=== PATIENT | female | born 1995 | race Caucasian/White ===

== ENCOUNTER 2017-04-28 21:09 | Emergency (ER) | payer OTHER ==
[2017-04-28 21:20] VITALS: BP 129/85; PULSE 91; TEMP 98.6; BMI 21.4
--- NOTE | 2017-04-28 22:03 | PDOC ---
History of Present Illness <Jenni Su - Last Filed: 04/29/17 00:54> - General History Source: Patient, Parent(s) Exam Limitations: No Limitations - History of Present Illness Initial Comments: 04/28/17 21:57 This is a 21 yo female with unremarkable PMH who presents with 10/10 throbbing headache on both sides of her forehead and radiating to the top of the head. The onset was and the symptoms have been worsening since that time. She note light sensitivity, but no noise sensitivity. She endorses associated room-spinning dizziness, but cannot specify which direction the room is spinning , and states that she has trouble balancing/walking only in the setting of worsened dizziness. She denies any vision changes, numbness, tingling, weakness , fever, chills, nausea, vomiting, diarrhea, constipation, cough, runny nose, rashes, neck pain, back pain, cough, runny nose, sore throat, or recent illness. Her mother was sick with "el gripe" last week. She denies any chance that she may be . 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 <Josie Pelletier - Last Filed: 04/29/17 01:25> - General Chief Complaint: Headache Stated Complaint: HEAD ACHE Time Seen by Provider: 04/28/17 21:40 Past History <Jenni Su - Last Filed: 04/29/17 00:54> - Past Medical History Other medical history: denies - Psycho/Social/Smoking Cessation Hx Suicidal Ideation: No Smoking History: Never smoked <Josie Pelletier - Last Filed: 04/29/17 01:25> - Past Medical History Allergies/Adverse Reactions: Allergies Allergy/AdvReac Type Severity Reaction Status Date / Time No Known Allergies Allergy Verified 04/28/17 22:25 Home Medications: Ambulatory Orders NK [No Known Home Medication] 04/28/17 Review of Systems - Review of Systems Constitutional: No: Chills, Fever, Unexplained wgt Loss HEENTM: No: Eye Pain, Blurred Vision, Recent change in vision, Ear Pain, Ear Discharge, Nose Congestion, Throat Pain, Throat Swelling Respiratory: No: Cough, Shortness of Breath Cardiac (ROS): No: Chest Pain, Palpitations ABD/GI: No: Constipated, Diarrhea, Nausea, Vomiting : No: Burning, Dysuria Musculoskeletal: No: Back Pain, Neck Pain Integumentary: No: Bruising, Rash Neurological: Yes: Headache, Other (light sensitivity). No: Numbness, Tingling , Weakness, Dizziness Endocrine: No: Unexplained Weight Gain, Unexplained Weight Loss <Josie Pelletier - Last Filed: 04/29/17 01:25> *Physical Exam - Vital Signs Last Vital Signs Temp Pulse Resp BP Pulse Ox 98.6 F 91 H 18 129/85 100 04/28/17 21:17 04/28/17 21:17 04/28/17 21:17 04/28/17 21:17 04/28/17 21:39 <Jenni Su - Last Filed: 04/29/17 00:54> - Vital Signs Last Vital Signs Temp Pulse Resp BP Pulse Ox 98.6 F 91 H 18 129/85 100 04/28/17 21:17 04/28/17 21:17 04/28/17 21:17 04/28/17 21:17 04/28/17 21:17 - Physical Exam General Appearance: Yes: Nourished, Appropriately Dressed, Mild Distress, Other (healthy-appearing young woman) HEENT: positive: EOMI, LORENA, Normal Voice, TMs Normal, Hearing Grossly Normal. negative: Scleral Icterus (R), Scleral Icterus (L), Nasal Congestion Neck: positive: Trachea midline, Supple, Other (no nucchal rigidity, no meningeal signs). negative: Tender, Rigid Respiratory/Chest: positive: Lungs Clear, Normal Breath Sounds. negative: Respiratory Distress, Crackles, Rhonchi, Stridor, Wheezing Cardiovascular: positive: Regular Rhythm, Regular Rate, Other (not tachycardic at the time of examination). negative: Murmur Gastrointestinal/Abdominal: positive: Normal Bowel Sounds, Soft. negative: Tender, Organomegaly, Pulsatile Mass, Guarding Musculoskeletal: positive: Normal Inspection. negative: Decreased Range of Motion, Vertebral Tenderness Extremity: positive: Normal Capillary Refill, Normal Inspection, Normal Range of Motion. negative: Tender, Cyanosis Integumentary: positive: Normal Color, Dry, Warm. negative: Erythema, Rash, Bruising Neurologic: positive: insurance consultant II-XII NML intact, Fully Oriented, Alert, Normal Mood/ Affect, Normal Response, Motor Strength 5/5 <Josie Pelletier - Last Filed: 04/29/17 01:25> ED Treatment Course - LABORATORY CBC & Chemistry Diagram: 04/28/17 23:33 04/28/17 23:33 - ADDITIONAL ORDERS Additional order review: Laboratory Results 04/28/17 04/28/17 04/28/17 23:33 23:33 23:33 INR 1.26 H Sodium 141 Potassium 3.6 Chloride 104 Carbon Dioxide 29 Anion Gap 8 BUN 15 Creatinine 0.7 Creat Clearance w eGFR > 60 Random Glucose 70 L Calcium 8.5 Total Bilirubin 0.3 AST 18 ALT 20 Alkaline Phosphatase 58 Total Protein 7.1 Albumin 3.8 Beta HCG, Quant < 1.0 04/28/17 23:33 RBC 4.49 MCV 81.7 MCHC 32.4 RDW 13.1 MPV 9.7 Neutrophils % 48.8 Lymphocytes % 42.3 H Monocytes % 6.5 Eosinophils % 1.9 Basophils % 0.5 - Medications Given in the ED: ED Medications Discontinued Medications Generic Name Dose Route Start Last Admin Trade Name Brain PRN Reason Stop Dose Admin Acetaminophen 1,000 mg 04/28/17 22:06 04/28/17 22:14 Tylenol - PO 04/28/17 22:07 1,000 mg ONCE ONE Administration Diphenhydramine HCl 50 mg 04/28/17 22:39 04/28/17 23:48 Benadryl - PO 04/28/17 22:40 50 mg ONCE ONE Administration <Jenni Su - Last Filed: 04/29/17 00:54> - LABORATORY CBC & Chemistry Diagram: 04/28/17 23:33 04/28/17 23:33 <Josie Pelletier - Last Filed: 04/29/17 01:25> Medical Decision Making - Medical Decision Making 04/28/17 22:09 This is a 21 yo female who presents with first-onset headache worsening since . Most likely this is a migraine given the throbbing nature, photophobia , and the associated symptom of dizziness. Neurological exam is within normal limits, remainder of exam normal as well. Less likely but still considered on the ddx are tension headache, meningitis, or intracranial lesion. She denies increased stress and states that the pain does not change with muscle massage, arguing against tension headache. She has no meningeal signs on examination and no fever or other vital sign abnormalities at the time of examination, arguing against meningitis. She does not have red flags for intracranial lesions or ICH (no n/v, focal neuro deficit, progressive nature of the symptoms, B-symptoms etc ), arguing against intracranial lesion. 04/29/17 01:19 Pain is much improved after Tylenol. <Josie Pelletier - Last Filed: 04/29/17 01:25> *DC/Admit/Observation/Transfer - Discharge Dispostion Admit: No <Jenni Su - Last Filed: 04/29/17 00:54> - Discharge Dispostion Admit: No - Attestations Physician Attestion: 04/29/17 01:24 I, Dr. Josie Pelletier, attest that this document has been prepared under my direction and personally reviewed by me in its entirety. I further attest, that it accurately reflects all work, treatment, procedures and medical decision -making performed by me. <Josie Pelletier - Last Filed: 04/29/17 01:25> Diagnosis at time of Disposition: Headache, menstrual migraine Qualifiers: Status migrainosus presence: without status migrainosus Intractability: not intractable Qualified Code(s): G43.829 - Menstrual migraine, not intractable, without status migrainosus - Discharge Dispostion Disposition: HOME Condition at time of disposition: Improved - Patient Instructions Printed Discharge Instructions: DI for Migraine Additional Instructions: Please take Tylenol as needed for headache. Follow up with your PCP on Sunday, or return to ED for any further emergency complaints. - Post Discharge Activity Work/School Note: Back to Work, Back to School
[2017-04-28] MEDS ORDERED: ACETAMINOPHEN 500 MG TABLET (FP) PO ONE (22:06)
[2017-04-28] MEDS ORDERED: ACETAMINOPHEN 325 MG TABLET (FP) ONE (22:19)
[2017-04-28] MEDS ORDERED: diphenhydrAMINE HCL 25 MG CAPSULE (FP) PO ONE ×2 (22:39→23:45)
[2017-04-28 23:56] LABS: BASOPHIL 0.5 % (0-2.0); EOSINOPHIL 1.9 % (0-4.5); MCH 26.5 pg (25.7-33.7); MCHC 32.4 g/dl (32.0-36.0); MEAN CELL VOLUME 81.7 fl (80-96); MEAN PLT VOLUME 9.7 fl (7.5-11.1); NEUTROPHILS 48.8 % (42.8-82.8); PLATELET COUNT 184 K/MM3 (134-434); RDW 13.1 % (11.6-15.6)
[2017-04-29 00:21] LABS: ALBUMIN 3.8 g/dl (3.4-5.0); ANION GAP 8 (8-16); BILIRUBIN,TOTAL 0.3 mg/dL (0.2-1.0); CALCIUM 8.5 mg/dL (8.5-10.1); CO2 29 mmol/L (21-32); CREATININE 0.7 mg/dL (0.55-1.02); GLUCOSE,RANDOM 70 mg/dL (74-106); SGOT/AST 18 U/L (15-37); SGPT/ALT 20 U/L (12-78); TOT PROT 7.1 g/dl (6.4-8.2)
[2017-04-29 00:22] LABS: ALK PHOS 58 U/L (45-117); INR 1.26 (0.82-1.09); PROTHROMBIN TIME (PATIENT) 13.9 SEC (9.98-11.88)
--- NOTE | 2017-04-29 00:53 | PDOC ---
Attending Attestation - Resident Resident Name: Josie Pelletier - HPI HPI: 04/29/17 00:33 Headache x 2 days. Last tylenol was yesterday AM. Excedrin migraine didn't help. - Physicial Exam PE: 04/29/17 00:53 Pt has no neck stiffness or tenderness; no nausea and no vomiting. Pt's neuro exam is normal. She responded to tylenol in the ER and she is feeling better with benadryl. Pt has normal labs and will not require CT head. She has no nystagmus. She has normal menses. The headache coincided with her menses, though she has never had a menses related headache before. Stable for discharge home. - Medical Decision Making 04/29/17 00:53 Home with tylenol Q6 hrs for headache.Regular meals.
== END 2017-04-29 01:31 | disposition home or self-care (01) ==
LOC: JER 21:09
DX: G43.829 Menstrual migraine, not intractable, without status migrainosus (principal)
CPT/HCPCS: 36415; 80053; 84702; 85025; 85610; 85730; 99282-25